=== PATIENT | female | born 1990 | race American Indian/Alaskan Native ===

== ENCOUNTER 2017-06-27 05:21 | Emergency (ER) | payer MEDICAID, OTHER ==
[2017-06-27 06:01] LABS: Basophils % (Auto) 0.1 % (0.0-1.8); Eosinophils % (Auto) 1.1 % (0.0-4.3); Hematocrit 41.2 % (30.3-42.9); Hemoglobin 13.9 gm/dl (10.1-14.3); Mean Corpuscular HGB Conc 34 % (30-34); Mean Corpuscular Hemoglobin 27 pg (28-32); Mean Corpuscular Volume 81 fl (79-97); Platelet Count 246 K/mm3 (140-440); Red Blood Count 5.08 M/mm3 (3.65-5.03); Red Cell Distribution Width 15.6 % (13.2-15.2); White Blood Count 10.2 K/mm3 (4.5-11.0)
[2017-06-27 06:17] LABS: Alanine Aminotransferase 15 units/L (7-56); Albumin 4.2 g/dL (3.9-5); Albumin/Globulin Ratio 1.2 %; Alkaline Phosphatase 62 units/L (35-129); Anion Gap 15 mmol/L; Blood Urea Nitrogen 14 mg/dL (7-17); Calcium 8.6 mg/dL (8.4-10.2); Carbon Dioxide 28 mmol/L (22-30); Chloride 98.6 mmol/L (98-107); Glucose 121 mg/dL (65-100); Lipase 25 units/L (13-60); Potassium 3.7 mmol/L (3.6-5.0); Sodium 138 mmol/L (137-145); Total Protein 7.6 g/dL (6.3-8.2)
[2017-06-27] MEDS ORDERED: ZOFRAN ODT PO ONE (10:30)
--- NOTE | 2017-06-27 10:32 | Emergency Department Report ---
Chief Complaint: Abdominal Pain Stated Complaint: N/V/D/ABD PAIN Time Seen by Provider: 06/27/17 10:25 - HPI History of Present Illness: abd pain pain, n/v since 199 - Review of Systems: + abd pain + n/ v - Exam Vital Signs: Vital Signs 06/27/17 05:32 Temperature 97.5 F L Pulse Rate 67 Blood Pressure 113/72 Physical Exam: abd soft, non tender at this time. MSE screening note: Focused history and physical exam performed. Due to findings the following was ordered: [facility] ED Medical Decision Making - Lab Data Result diagrams: 06/27/17 05:42 06/27/17 05:42 ED Disposition for MSE Condition: Stable Instructions: Abdominal Pain (ED) Referrals: PRIMARY CARE, [Primary Care Provider] - 3-5 Days
[2017-06-27] MEDS ORDERED: ZOFRAN IV ONE ×2 (12:39→15:13)
[2017-06-27] MEDS ORDERED: MORPHINE IV ONE ×2 (12:39→14:41)
[2017-06-27] MEDS ORDERED: NACL 0.9% 1000 ML 1,000 ML IV ONE (12:39)
[2017-06-27] MEDS ORDERED: PEPCID IV ONE (12:41)
--- NOTE | 2017-06-27 12:44 | Emergency Department Report ---
ED Abdominal Pain HPI - General Chief Complaint: Abdominal Pain Stated Complaint: N/V/D/ABD PAIN Time Seen by Provider: 06/27/17 10:25 Source: patient Mode of arrival: Ambulatory Limitations: No Limitations - History of Present Illness Initial Comments: 26-year-old female here with abdominal pain. Patient states she started feeling some chills and nausea last night. Around 2 AM she started vomiting. She's had some nausea vomiting since that time. The vomiting is nonbilious. She is complaining of abdominal cramping. Just complains of chills but no other symptoms. MD Complaint: abdominal pain Location: epigastric Radiation: none Migration to: no migration Severity: mild Severity scale (0 -10): 6 Quality: cramping, stabbing Consistency: constant - Related Data Previous Rx's Medication Instructions Recorded Last Taken Type Cephalexin [Keflex] 500 mg PO TID #21 capsule 04/02/14 Unknown Rx Azithromycin [Zithromax TAB] 250 mg PO QDAY #5 tablet 10/13/16 Unknown Rx traMADol [Ultram 50 MG tab] 50 mg PO Q6HR PRN #20 tablet 10/13/16 Unknown Rx Ibuprofen [Motrin 600 MG tab] 600 mg PO Q8H PRN #30 tablet 06/27/17 Unknown Rx Ondansetron [Zofran Odt] 4 mg PO Q4HR #10 tab.rapdis 06/27/17 Unknown Rx Allergies Allergy/AdvReac Type Severity Reaction Status Date / Time No Known Allergies Allergy Unverified 04/02/14 08:25 ED Review of Systems ROS: Stated complaint: N/V/D/ABD PAIN Other details as noted in HPI Comment: All other systems reviewed and negative Constitutional: denies: chills, fever Eyes: denies: eye pain, eye discharge, vision change ENT: denies: ear pain, throat pain Respiratory: denies: cough, shortness of breath, wheezing Cardiovascular: denies: chest pain, palpitations Endocrine: no symptoms reported Gastrointestinal: abdominal pain, nausea, vomiting. denies: diarrhea Genitourinary: denies: urgency, dysuria, discharge Musculoskeletal: denies: back pain, joint swelling, arthralgia Skin: denies: rash, lesions Neurological: denies: headache, weakness, paresthesias Psychiatric: denies: anxiety, depression Hematological/Lymphatic: denies: easy bleeding, easy bruising ED Past Medical Hx - Past Medical History Previous Medical History?: No - Surgical History Past Surgical History?: No - Family History Family history: no significant - Social History Smoking Status: Never Smoker Substance Use Type: None - Medications Home Medications: Home Medications Medication Instructions Recorded Confirmed Last Taken Type Cephalexin [Keflex] 500 mg PO TID #21 capsule 04/02/14 Unknown Rx Azithromycin [Zithromax TAB] 250 mg PO QDAY #5 tablet 10/13/16 Unknown Rx traMADol [Ultram 50 MG tab] 50 mg PO Q6HR PRN #20 tablet 10/13/16 Unknown Rx Ibuprofen [Motrin 600 MG tab] 600 mg PO Q8H PRN #30 tablet 06/27/17 Unknown Rx Ondansetron [Zofran Odt] 4 mg PO Q4HR #10 tab.rapdis 06/27/17 Unknown Rx ED Physical Exam - General Limitations: No Limitations General appearance: alert, in no apparent distress, obese, other (appears uncomfortable) - Head Head exam: Present: atraumatic, normocephalic - Eye Eye exam: Present: normal appearance. Absent: scleral icterus, conjunctival injection - ENT ENT exam: Present: mucous membranes moist - Neck Neck exam: Present: normal inspection - Respiratory Respiratory exam: Present: normal lung sounds bilaterally. Absent: respiratory distress - Cardiovascular Cardiovascular Exam: Present: regular rate, normal rhythm. Absent: systolic murmur, diastolic murmur, rubs, gallop - GI/Abdominal GI/Abdominal exam: Present: soft, hyperactive bowel sounds. Absent: distended, tenderness, guarding, rebound - Extremities Exam Extremities exam: Present: normal inspection - Back Exam Back exam: Present: normal inspection - Neurological Exam Neurological exam: Present: alert, oriented X3 - Psychiatric Psychiatric exam: Present: normal affect, normal mood - Skin Skin exam: Present: warm, dry, intact, normal color. Absent: rash ED Course Vital Signs 06/27/17 06/27/17 06/27/17 05:32 10:38 11:50 Temperature 97.5 F L 97.6 F Pulse Rate 67 64 62 Respiratory 18 16 Rate Blood Pressure 113/72 Blood Pressure 133/95 133/83 [Left] O2 Sat by Pulse 100 100 Oximetry 06/27/17 14:03 Temperature 98.1 F Pulse Rate 61 Respiratory 16 Rate Blood Pressure Blood Pressure 129/87 [Left] O2 Sat by Pulse 100 Oximetry ED Medical Decision Making - Lab Data Result diagrams: 06/27/17 05:42 06/27/17 05:42 Laboratory Results - last 24 hr 06/27/17 06/27/17 05:42 05:42 WBC 10.2 RBC 5.08 H Hgb 13.9 Hct 41.2 MCV 81 MCH 27 L MCHC 34 RDW 15.6 H Plt Count 246 Lymph % (Auto) 13.2 L Yancey % (Auto) 8.1 H Eos % (Auto) 1.1 Baso % (Auto) 0.1 Lymph # 1.4 Yancey # 0.8 Eos # 0.1 Baso # 0.0 Seg Neutrophils % 77.5 H Seg Neutrophils # 7.9 H Sodium 138 Potassium 3.7 Chloride 98.6 Carbon Dioxide 28 Anion Gap 15 BUN 14 Creatinine 0.7 Estimated GFR > 60 BUN/Creatinine Ratio 20.00 Glucose 121 H Calcium 8.6 Total Bilirubin 0.30 AST 19 ALT 15 Alkaline Phosphatase 62 Total Protein 7.6 Albumin 4.2 Albumin/Globulin Ratio 1.2 Lipase 25 - Medical Decision Making Patient is a 26 old female with no medical history here with complaints of abdominal pain nausea vomiting. She is tender epigastrium but otherwise appears well. She's had some vomiting here in the emergency department. Her labs are unremarkable. Plan to check UA treated with IV fluids and Zofran Pepcid and plan to reassess. CT negative. Patient feeling somewhat improved after several doses of morphine and Zofran. Plan to discharge him with oral pain medication and Zofran. Portions of this chart were dictated with dictation software. There may be dictation errors contained within this note. Critical care attestation.: If time is entered above; I have spent that time in minutes in the direct care of this critically ill patient, excluding procedure time. ED Disposition Clinical Impression: Abdominal pain, Nausea and vomiting Disposition: DC-01 TO HOME OR SELFCARE Is pt being admited?: No Condition: Stable Instructions: Abdominal Pain (ED) Prescriptions: Ibuprofen [Motrin 600 MG tab] 600 mg PO Q8H PRN #30 tablet PRN Reason: Pain Ondansetron [Zofran Odt] 4 mg PO Q4HR #10 tab.rapdis Referrals: PRIMARY CARE, [Primary Care Provider] - 3-5 Days
[2017-06-27 14:11] LABS: Urine Drugs of Abuse Note Disclamer
[2017-06-27 14:31] LABS: Bilirubin,Urine NEG (Negative); Blood,Urine NEG (Negative); Ketones,Urine NEG (Negative); Leukocyte Esterase,Urine NEG (Negative); Mucus,Urine FEW /HPF; Nitrite,Urine NEG (Negative); Urobilinogen,Urine < 2.0 mg/dL (<2.0); WBC,Urine < 1.0 /HPF (0.0-6.0)
[2017-06-27] MEDS ORDERED: ZOFRAN ONE (15:02)
[2017-06-27] MEDS ORDERED: NACL ONE (16:27)
--- NOTE | 2017-06-27 16:37 | Cat Scan Report ---
CT ABDOMEN AND PELVIS WITH CONTRAST INDICATION: Abdominal pain, nausea, vomiting. COMPARISON: None similar. FINDINGS: Abdomen and pelvis CT performed following intravenous administration of 100 cc of Omnipaque 300. LUNG BASES: Normal heart size. No effusions. Slight nonspecific distal esophageal prominence. ABDOMEN: Liver, spleen, gallbladder, pancreas, adrenals, nonaneurysmal abdominal aorta, IVC and kidneys within normal limits bilaterally without hydronephrosis, ascites or size significant adenopathy. Right hepatic lobe approximately 19 cm in midclavicular length. Left hepatic lobe tip also wraps around the spleen. Nonopacified GI tract evaluation limited, though grossly nonobstructive. Normal appendix. PELVIS: Uterus may be retroverted. Otherwise physiologic appearance of the uterus, adnexa/ovaries, urinary bladder and the rectosigmoid. Few small pelvic phleboliths. No free fluid or significant adenopathy. Slight lower thoracic degenerative spurring. CONCLUSION: No acute CT abnormality with few incidental findings, including slightly prominent liver, as described. Please correlate. Thank you for the opportunity to participate in this patient's care.
[2017-06-27 17:38] VITALS: BP 104/68
== END 2017-06-27 17:39 | disposition home or self-care (01) ==
LOC: ED 05:21
DX: R10.13 Epigastric pain (principal); R11.2 Nausea with vomiting, unspecified
CPT/HCPCS: 36415; 74177; 80053; 80307; 81001; 81025; 83690; 85025; 96361; 96374; 96375; 96376; 99284; J2270; J2405; J7030; Q9967; Q0162

== ENCOUNTER 2017-10-11 15:16 | Emergency (ER) | payer MEDICAID ==
[2017-10-11] MEDS ORDERED: MOTRIN PO ONE (15:46)
--- NOTE | 2017-10-11 15:46 | Emergency Department Report ---
Chief Complaint: Dyspnea/Respdistress Stated Complaint: CHEST PAIN/SHORT OF BREATH - HPI History of Present Illness: This is a 27-year-old female nontoxic, well nourished in appearance, no acute signs of distress presents to the ED with c/o of chest pain, shortness of breath , productive cough, diarrhea, fever, weakness times x3 days. Patient denies any recent rales, rhonchi or recent hospital stay. Denies any nausea, vomiting , chills, stiff neck, headache. Denies any calf pain or tenderness. Patient describes productive cough as brownish/yellowish sputum. - Exam Vital Signs: Vital Signs 10/11/17 15:22 Temperature 100.3 F H Pulse Rate 116 H Respiratory 20 Rate Blood Pressure 128/91 O2 Sat by Pulse 95 Oximetry Physical Exam: GENERAL: The patient is a well-developed, well-nourished female in no apparent distress. Patient is alert and acting appropriately for age. Alert and oriented 3, no apparent distress, normal gait, atraumatic. LUNGS: Clear to auscultation. Non labor breathing. No intercostal retractions. Symmetrical with respiration, no wheezing, no rales, or crackles. ABDOMEN: Soft, nontender, and nondistended. Positive bowel sounds. No hepatosplenomegaly was noted. No guarding or rebound tenderness, negative epigastric bruit. Negative psoas sign, negative conley sign, negative McBurneys sign MSE screening note: Focused history and physical exam performed. Due to findings the following was ordered: 1- This initial assessment/diagnostic orders/clinical plan/ treatment(s) is/are subject to change based on pt's health status, clinical progression and re- assessment by fellow clinical providers in the ED. Further treatment and workup at subsequent clinical provers discretion. Patient/guardians urged not to elope from ED as their condition may be serious if not clinically assessed and managed. 2-EKG, chest x-ray 3-CBC, CMP, troponin, cardiac CK, UA, serum test ED Disposition for MSE Condition: Stable
[2017-10-11 16:20] LABS: Eosinophils % (Auto) 0.1 % (0.0-4.3); Mean Corpuscular HGB Conc 34 % (30-34); Mean Corpuscular Hemoglobin 27 pg (28-32); Mean Corpuscular Volume 79 fl (79-97); Platelet Count 218 K/mm3 (140-440); Red Blood Count 5.22 M/mm3 (3.65-5.03); Red Cell Distribution Width 14.2 % (13.2-15.2); White Blood Count 5.1 K/mm3 (4.5-11.0)
[2017-10-11 16:51] LABS: Alanine Aminotransferase 13 units/L (7-56); Albumin 4.2 g/dL (3.9-5); Albumin/Globulin Ratio 1.4 %; Alkaline Phosphatase 57 units/L (35-129); Anion Gap 21 mmol/L; BUN/Creatinine Ratio 11; Blood Urea Nitrogen 9 mg/dL (7-17); Calcium 8.4 mg/dL (8.4-10.2); Carbon Dioxide 20 mmol/L (22-30); Chloride 97.3 mmol/L (98-107); Creatine Kinase 115 units/L (30-135); Glucose 105 mg/dL (65-100); Potassium 3.7 mmol/L (3.6-5.0); Sodium 135 mmol/L (137-145); Total Protein 7.3 g/dL (6.3-8.2)
[2017-10-11 16:56] LABS: Creatine Kinase MB < 1.0 ng/mL (0.0-4.0)
[2017-10-12] MEDS ORDERED: ATROVENT IH ONE (03:25)
[2017-10-12] MEDS ORDERED: TYLENOL PO ONE (03:26)
[2017-10-12] MEDS ORDERED: PROVENTIL IH ONE (03:26)
[2017-10-12] MEDS ORDERED: MAGNESIUM SULFATE 2GM/50ML 2 GM/50 ML BAG IV ONE (03:26)
[2017-10-12] MEDS ORDERED: NACL 0.9% 1000 ML 1,000 ML IV ONE (03:26)
[2017-10-12] MEDS ORDERED: TORADOL IV ONE (03:27)
--- NOTE | 2017-10-12 03:27 | Emergency Department Report ---
ED General Adult HPI - General Chief complaint: Dyspnea/Respdistress Stated complaint: CHEST PAIN/SHORT OF BREATH Time Seen by Provider: 10/12/17 02:29 Source: patient, RN notes reviewed Mode of arrival: Ambulatory Limitations: No Limitations - History of Present Illness Initial comments: This is a 27-year-old female who was previously unknown to me. Patient presents to the ER with chest wall pain since Tuesday. Patient also complains of cough, shortness of breath, mucous production. There is no leg pain. There is no leg swelling. Patient does not take oral contraceptives. Patient has no recent surgeries. Patient reports that she recently has not . Patient further reports that she's been coughing and wheezing, bringing up mucus. She also reports resolved facial pain. -: Gradual Location: face, chest Radiation: non-radiation Severity scale (0 -10): 7 Quality: aching Consistency: constant Improves with: rest Worsens with: movement Associated Symptoms: chest pain, cough, fever/chills, shortness of breath - Related Data Previous Rx's Medication Instructions Recorded Last Taken Type Cephalexin [Keflex] 500 mg PO TID #21 capsule 04/02/14 Unknown Rx Azithromycin [Zithromax TAB] 250 mg PO QDAY #5 tablet 10/13/16 Unknown Rx traMADol [Ultram 50 MG tab] 50 mg PO Q6HR PRN #20 tablet 10/13/16 Unknown Rx Ibuprofen [Motrin 600 MG tab] 600 mg PO Q8H PRN #30 tablet 06/27/17 Unknown Rx Ondansetron [Zofran Odt] 4 mg PO Q4HR #10 tab.rapdis 06/27/17 Unknown Rx Albuterol Sulfate [Proair 90 mcg IH Q4HR PRN #2 aer.pow.ba 10/12/17 Unknown Rx Respiclick] Benzonatate [Tessalon Perles] 100 mg PO Q8HR PRN #30 capsule 10/12/17 Unknown Rx Fluticasone [Flonase] 1 spray NS QDAY #1 bottle 10/12/17 Unknown Rx Ibuprofen [Motrin] 600 mg PO Q8H PRN #30 tablet 10/12/17 Unknown Rx Ipratropium [place] [Atrovent Hfa] 12.9 gm IH Q4HR #2 hfa.aer.ad 10/12/17 Unknown Rx predniSONE [Deltasone] 40 mg PO QDAY #8 tab 10/12/17 Unknown Rx Allergies Allergy/AdvReac Type Severity Reaction Status Date / Time No Known Allergies Allergy Unverified 04/02/14 08:25 ED Review of Systems ROS: Stated complaint: CHEST PAIN/SHORT OF BREATH Other details as noted in HPI Constitutional: fever, weakness ENT: congestion Respiratory: cough, wheezing Cardiovascular: chest pain Gastrointestinal: denies: vomiting Genitourinary: as per HPI Musculoskeletal: arthralgia, myalgia Neurological: weakness ED Past Medical Hx - Past Medical History Previous Medical History?: No - Surgical History Past Surgical History?: No - Social History Smoking Status: Current Every Day Smoker Substance Use Type: None - Medications Home Medications: Home Medications Medication Instructions Recorded Confirmed Last Taken Type Cephalexin [Keflex] 500 mg PO TID #21 capsule 04/02/14 Unknown Rx Azithromycin [Zithromax TAB] 250 mg PO QDAY #5 tablet 10/13/16 Unknown Rx traMADol [Ultram 50 MG tab] 50 mg PO Q6HR PRN #20 tablet 10/13/16 Unknown Rx Ibuprofen [Motrin 600 MG tab] 600 mg PO Q8H PRN #30 tablet 06/27/17 Unknown Rx Ondansetron [Zofran Odt] 4 mg PO Q4HR #10 tab.rapdis 06/27/17 Unknown Rx Albuterol Sulfate [Proair 90 mcg IH Q4HR PRN #2 aer.pow.ba 10/12/17 Unknown Rx Respiclick] Benzonatate [Tessalon Perles] 100 mg PO Q8HR PRN #30 capsule 10/12/17 Unknown Rx Fluticasone [Flonase] 1 spray NS QDAY #1 bottle 10/12/17 Unknown Rx Ibuprofen [Motrin] 600 mg PO Q8H PRN #30 tablet 10/12/17 Unknown Rx Ipratropium [place] [Atrovent Hfa] 12.9 gm IH Q4HR #2 hfa.aer.ad 10/12/17 Unknown Rx predniSONE [Deltasone] 40 mg PO QDAY #8 tab 10/12/17 Unknown Rx ED Physical Exam - General Limitations: No Limitations General appearance: alert, in no apparent distress - Head Head exam: Present: atraumatic, normocephalic - Eye Eye exam: Present: normal appearance, EOMI. Absent: nystagmus - ENT ENT exam: Present: normal exam, normal orophraynx, mucous membranes moist, TM's normal bilaterally, normal external ear exam - Neck Neck exam: Present: normal inspection, full ROM - Respiratory Respiratory exam: Present: wheezes, chest wall tenderness. Absent: respiratory distress - Cardiovascular Cardiovascular Exam: Present: normal rhythm, tachycardia, normal heart sounds. Absent: systolic murmur, diastolic murmur, rubs, gallop - GI/Abdominal GI/Abdominal exam: Present: soft, normal bowel sounds. Absent: distended, tenderness, guarding, rebound, rigid, pulsatile mass - Extremities Exam Extremities exam: Present: normal inspection, full ROM, normal capillary refill. Absent: pedal edema, joint swelling, calf tenderness - Back Exam Back exam: Present: normal inspection, full ROM. Absent: CVA tenderness (R), paraspinal tenderness, vertebral tenderness - Neurological Exam Neurological exam: Present: alert, oriented X3, normal gait, other (Extraocular movements intact. Tongue midline. No facial droop. Facial sensation intact to light touch in the V1, V2, V3 distribution bilaterally. 5 and 5 strength in 4 extremities.. Sensation is intact to light touch in 4 extremities.). Absent : motor sensory deficit - Psychiatric Psychiatric exam: Present: normal affect, normal mood - Skin Skin exam: Present: warm, dry, intact, normal color. Absent: rash ED Course Vital Signs 10/11/17 10/12/17 10/12/17 15:22 02:00 02:05 Temperature 100.3 F H 99.5 F Pulse Rate 116 H 96 H 99 H Respiratory 20 22 24 Rate Blood Pressure 128/91 115/84 Blood Pressure 124/78 [Left] O2 Sat by Pulse 95 96 95 Oximetry 10/12/17 10/12/17 03:00 04:00 Temperature Pulse Rate 96 H 100 H Respiratory 24 18 Rate Blood Pressure 120/79 123/78 Blood Pressure [Left] O2 Sat by Pulse 94 Oximetry - Reevaluation(s) Reevaluation #1: 10/12/17 04:44 There are no DVT or pulmonary embolus risk factors. The patient is low risk by well's criteria. Clinical history suggestive of bronchitis with possible superimposed costochondritis. Patient able to walk around the ER multiple times without desaturating. ED Medical Decision Making - Lab Data Result diagrams: 10/11/17 16:05 10/11/17 16:05 Vital Signs 10/11/17 10/12/17 10/12/17 15:22 02:00 02:05 Temperature 100.3 F H 99.5 F Pulse Rate 116 H 96 H 99 H Respiratory 20 22 24 Rate Blood Pressure 128/91 115/84 Blood Pressure 124/78 [Left] O2 Sat by Pulse 95 96 95 Oximetry 10/12/17 10/12/17 03:00 04:00 Temperature Pulse Rate 96 H 100 H Respiratory 24 18 Rate Blood Pressure 120/79 123/78 Blood Pressure [Left] O2 Sat by Pulse 94 Oximetry Lab Results 10/11/17 10/11/17 10/11/17 Range/Units 16:05 16:05 16:05 WBC 5.1 (4.5-11.0) K/mm3 RBC 5.22 H (3.65-5.03) M/mm3 Hgb 14.0 (10.1-14.3) gm/dl Hct 41.0 (30.3-42.9) % MCV 79 (79-97) fl MCH 27 L (28-32) pg MCHC 34 (30-34) % RDW 14.2 (13.2-15.2) % Plt Count 218 (140-440) K/mm3 Lymph % (Auto) 19.1 (13.4-35.0) % Walton % (Auto) 13.7 H (0.0-7.3) % Eos % (Auto) 0.1 (0.0-4.3) % Baso % (Auto) 1.0 (0.0-1.8) % Lymph # 1.0 L (1.2-5.4) K/mm3 Walton # 0.7 (0.0-0.8) K/mm3 Eos # 0.0 (0.0-0.4) K/mm3 Baso # 0.1 (0.0-0.1) K/mm3 Seg Neutrophils % 66.1 (40.0-70.0) % Seg Neutrophils # 3.4 (1.8-7.7) K/mm3 Sodium 135 L (137-145) mmol/L Potassium 3.7 (3.6-5.0) mmol/L Chloride 97.3 L (98-107) mmol/L Carbon Dioxide 20 L (22-30) mmol/L Anion Gap 21 mmol/L BUN 9 (7-17) mg/dL Creatinine 0.8 (0.7-1.2) mg/dL Estimated GFR > 60 ml/min BUN/Creatinine Ratio 11 % Glucose 105 H (65-100) mg/dL Calcium 8.4 (8.4-10.2) mg/dL Total Bilirubin 0.30 (0.1-1.2) mg/dL AST 19 (5-40) units/L ALT 13 (7-56) units/L Alkaline Phosphatase 57 (35-129) units/L Total Creatine Kinase 115 (30-135) units/L CK-MB (CK-2) < 1.0 (0.0-4.0) ng/mL CK-MB (CK-2) Rel Index 0.8 (0-4) Troponin T < 0.010 (0.00-0.029) ng/mL Total Protein 7.3 (6.3-8.2) g/dL Albumin 4.2 (3.9-5) g/dL Albumin/Globulin Ratio 1.4 % HCG, Qual Negative (Negative) 10/12/17 Range/Units 03:36 WBC (4.5-11.0) K/mm3 RBC (3.65-5.03) M/mm3 Hgb (10.1-14.3) gm/dl Hct (30.3-42.9) % MCV (79-97) fl MCH (28-32) pg MCHC (30-34) % RDW (13.2-15.2) % Plt Count (140-440) K/mm3 Lymph % (Auto) (13.4-35.0) % Walton % (Auto) (0.0-7.3) % Eos % (Auto) (0.0-4.3) % Baso % (Auto) (0.0-1.8) % Lymph # (1.2-5.4) K/mm3 Walton # (0.0-0.8) K/mm3 Eos # (0.0-0.4) K/mm3 Baso # (0.0-0.1) K/mm3 Seg Neutrophils % (40.0-70.0) % Seg Neutrophils # (1.8-7.7) K/mm3 Sodium (137-145) mmol/L Potassium (3.6-5.0) mmol/L Chloride (98-107) mmol/L Carbon Dioxide (22-30) mmol/L Anion Gap mmol/L BUN (7-17) mg/dL Creatinine (0.7-1.2) mg/dL Estimated GFR ml/min BUN/Creatinine Ratio % Glucose (65-100) mg/dL Calcium (8.4-10.2) mg/dL Total Bilirubin (0.1-1.2) mg/dL AST (5-40) units/L ALT (7-56) units/L Alkaline Phosphatase (35-129) units/L Total Creatine Kinase (30-135) units/L CK-MB (CK-2) (0.0-4.0) ng/mL CK-MB (CK-2) Rel Index (0-4) Troponin T < 0.010 (0.00-0.029) ng/mL Total Protein (6.3-8.2) g/dL Albumin (3.9-5) g/dL Albumin/Globulin Ratio % HCG, Qual (Negative) - EKG Data -: EKG Interpreted by Me - EKG Data 10/12/17 04:35 EKG #1 demonstrates sinus, 97 bpm, normal intervals, normal axis, not morphologically consistent with ST elevation myocardial infarction. Repeat EKG is unchanged. - Radiology Data Radiology results: image reviewed interpreted by me: X-ray of the chest is negative for acute disease - Medical Decision Making Differential diagnosis, including but not limited to: Bronchitis, pneumonia, pneumonitis, pericarditis, myocarditis, costochondritis Assessment and plan: 27-year-old female with atypical chest wall pain that is reproducible for a few days. Troponin negative 2, low risk by heart score, low risk by ENRIQUE score, low risk by well's criteria, medicated aggressively with pain medication, fluids, albuterol, Atrovent, steroids and magnesium. On multiple repeat examinations patient noted to be sleeping in stretcher and in no distress. She has some persistent wheezing after her aforementioned therapy but I would expect that. The patient is able to walk without desaturation, patient at low risk for major adverse cardiac event given clinical history and physical exam findings, given negative troponin, myocarditis/pericarditis very unlikely. Patient is somewhat tachycardic at this time, but did receive albuterol and I would expect that. Critical care attestation.: If time is entered above; I have spent that time in minutes in the direct care of this critically ill patient, excluding procedure time. ED Disposition Clinical Impression: Bronchitis, Chest wall pain Disposition: DC-01 TO HOME OR SELFCARE Is pt being admited?: No Does the pt Need Aspirin: No Condition: Stable Instructions: Costochondritis (ED), Acute Bronchitis (ED) Additional Instructions: As we discussed, symptoms likely coming from bronchitis, and irritation in the muscles of the chest wall cavity. Symptoms of bronchitis may last anywhere from 2 weeks to 6 weeks. Rest and avoid heavy lifting, and avoid strenuous physical activity. Take the pain medication, breathing medication as directed. Follow up with her primary care doctor within the next 7-10 days. Return to the ER right away with new pain, worsened pain, migration of pain, fevers, chills, lethargy, irritability, projectile vomiting, change in mental status, confusion, inability to tolerate liquid feeds Prescriptions: Albuterol Sulfate [Proair Respiclick] 90 mcg IH Q4HR PRN #2 aer.pow.ba PRN Reason: Wheezing Benzonatate [Tessalon Perles] 100 mg PO Q8HR PRN #30 capsule PRN Reason: Cough Fluticasone [Flonase] 1 spray NS QDAY #1 bottle Ibuprofen [Motrin] 600 mg PO Q8H PRN #30 tablet PRN Reason: Pain Ipratropium [place] [Atrovent Hfa] 12.9 gm IH Q4HR #2 hfa.aer.ad predniSONE [Deltasone] 40 mg PO QDAY #8 tab Referrals: OMID KARIMI MD [Primary Care Provider] - 3-5 Days [facility] [Provider Group] - 3-5 Days
[2017-10-12 04:22] VITALS: BP 123/78
--- NOTE | 2017-10-12 10:21 | XRay Report ---
CHEST 2 VIEWS INDICATION: Chest pain. COMPARISON: 10/13/2016 FINDINGS: PA and lateral chest radiographs again demonstrate normal cardiomediastinal silhouette and slightly prominent markings, greatest at the right lung base with mild right middle lobe scarring medially and prominent right cardiophrenic angle fat pad noted on 06/27/2017 CT. Clear remainder lungs without pleural effusions or CHF. Slight mid to lower thoracic spine degenerative spurring. CONCLUSION: No significant acute chest process or interval change, as above. Thank you for the opportunity to participate in this patient's care.
== END 2017-10-12 05:00 | disposition home or self-care (01) ==
LOC: ED 15:16
DX: J40 Bronchitis, not specified as acute or chronic (principal); R07.89 Other chest pain; F17.200 Nicotine dependence, unspecified, uncomplicated
CPT/HCPCS: 36415; 71020; 80053; 82550; 82553; 84484; 84703; 85025; 93005; 93010; 94640; 96361; 96365; 96375; 99284; J1885; J2930; J3475; J7030

== ENCOUNTER 2018-01-03 18:18 | Outpatient (CLI) | payer MEDICAID ==
--- NOTE | 2018-01-03 19:55 | XRay Report ---
FINAL REPORT PROCEDURE: Left foot. TECHNIQUE: Three views. HISTORY: Knee and foot pain . COMPARISON: No prior studies are available for comparison. FINDINGS: The bones appear intact without fracture or dislocation. The joint spaces appear normal. The soft tissues are unremarkable. IMPRESSION: Normal study.
--- NOTE | 2018-01-03 21:29 | XRay Report ---
FINAL REPORT PROCEDURE: Bilateral knees. TECHNIQUE: Three views of each knee. HISTORY: Knee and foot pain. COMPARISON: No prior studies are available for comparison. FINDINGS: Right knee: The bones appear intact without fracture or dislocation. The joint spaces appear normal. The soft tissues are unremarkable. There is no evidence of a knee effusion. Left knee: The bones appear intact without fracture or dislocation. The joint spaces appear normal. The soft tissues are unremarkable. There is no evidence of a knee effusion. IMPRESSION: Normal right and left knees.
== END 2018-01-03 18:19 | disposition home or self-care (01) ==
LOC: XRAY 18:18
PROVIDERS: ATTEND Internal Medicine
DX: M25.561 Pain in right knee (principal); M25.562 Pain in left knee; M79.672 Pain in left foot

== ENCOUNTER 2022-03-23 22:13 | Emergency (ER) | payer MEDICAID, OTHER ==
[2022-03-23 22:39] VITALS: BP 90/69
--- NOTE | 2022-03-24 01:28 | Emergency Department Report ---
ED Eye Problem HPI - General Chief complaint: Eye Problems Stated complaint: EYE IRRITATION Source: patient Mode of arrival: Ambulatory Limitations: No Limitations - History of Present Illness Initial comments: Patient is a 31-year-old -[place] female with a history of morbid obesity presents to the ED with complaint of acute onset persistent bilateral eye pain and redness for the last 6 hours. Patient states that she has not been able to sleep because of persistent pain with burning sensation with eyelid swelling for the last 2 hours. Patient states that no one else at home or at work has had the symptoms. Patient denies vision loss, fever, chills, nasal and sinus congestion, headache, neck pain, cough, sore throat, nausea and vomiting or diarrhea. MD chief complaint: eye pain (Bilateral eye pain and redness), eye redness -: Sudden, hour(s) (6) Onset Description: sudden Location: both eyes Place: home If Injury: none Eye Symptoms: burning, redness, pain, itching, discharge Severity: moderate Severity scale (0 -10): 6 If Pain, Quality: burning, aching Consistency: constant Associated Symptoms: none. denies: headache, neck pain, nausea/vomiting, cough, rhinorrhea, fever, other Treatments Prior to Arrival: none - Related Data Patient Tetanus UTD: Yes Previous Rx's Medication Instructions Recorded Last Taken Type cephALEXin [Keflex] 500 mg PO TID #21 capsule 04/02/14 Unknown Rx Azithromycin [Zithromax TAB] 250 mg PO QDAY #5 tablet 10/13/16 Unknown Rx traMADoL [Ultram 50 MG tab] 50 mg PO Q6HR PRN #20 tablet 10/13/16 Unknown Rx Ondansetron [Zofran Odt] 4 mg PO Q4HR #10 tab.rapdis 06/27/17 Unknown Rx Albuterol Sulfate [Proair 90 mcg IH Q4HR PRN #2 aer.pow.ba 10/12/17 Unknown Rx Respiclick] Benzonatate [Tessalon Perles] 100 mg PO Q8HR PRN #30 capsule 10/12/17 Unknown Rx Fluticasone [Flonase] 1 spray NS QDAY #1 bottle 10/12/17 Unknown Rx Ibuprofen [Motrin] 600 mg PO Q8H PRN #30 tablet 10/12/17 Unknown Rx Ipratropium [place] [Atrovent Hfa] 12.9 gm IH Q4HR #2 hfa.aer.ad 10/12/17 Unknown Rx predniSONE [Deltasone] 40 mg PO QDAY #8 tab 10/12/17 Unknown Rx Ibuprofen [Motrin 600 MG tab] 600 mg PO Q8H PRN #30 tablet 03/24/22 Unknown Rx Tobramycin 0.3% [Tobrex] 1 drop OP Q8HR #5 ml 03/24/22 Unknown Rx Allergies Allergy/AdvReac Type Severity Reaction Status Date / Time No Known Allergies Allergy Unverified 04/02/14 08:25 ED Review of Systems ROS: Stated complaint: EYE IRRITATION Other details as noted in HPI Constitutional: denies: chills, fever Eyes: eye pain (Bilateral eye pain), eye discharge (Bilateral). denies: vision change ENT: denies: ear pain, throat pain Respiratory: denies: cough, shortness of breath, wheezing Cardiovascular: denies: chest pain, palpitations Endocrine: no symptoms reported Gastrointestinal: denies: abdominal pain, nausea, diarrhea Genitourinary: denies: urgency, dysuria, discharge Musculoskeletal: denies: back pain, joint swelling, arthralgia Skin: denies: rash, lesions Neurological: denies: headache, weakness, paresthesias Psychiatric: denies: anxiety, depression Hematological/Lymphatic: denies: easy bleeding, easy bruising ED Past Medical Hx - Social History Smoking Status: Current Every Day Smoker Substance Use Type: None - Medications Home Medications: Home Medications Medication Instructions Recorded Confirmed Last Taken Type cephALEXin [Keflex] 500 mg PO TID #21 capsule 04/02/14 Unknown Rx Azithromycin [Zithromax TAB] 250 mg PO QDAY #5 tablet 10/13/16 Unknown Rx traMADoL [Ultram 50 MG tab] 50 mg PO Q6HR PRN #20 tablet 10/13/16 Unknown Rx Ondansetron [Zofran Odt] 4 mg PO Q4HR #10 tab.rapdis 06/27/17 Unknown Rx Albuterol Sulfate [Proair 90 mcg IH Q4HR PRN #2 aer.pow.ba 10/12/17 Unknown Rx Respiclick] Benzonatate [Tessalon Perles] 100 mg PO Q8HR PRN #30 capsule 10/12/17 Unknown Rx Fluticasone [Flonase] 1 spray NS QDAY #1 bottle 10/12/17 Unknown Rx Ibuprofen [Motrin] 600 mg PO Q8H PRN #30 tablet 10/12/17 Unknown Rx Ipratropium [place] [Atrovent Hfa] 12.9 gm IH Q4HR #2 hfa.aer.ad 10/12/17 Unknown Rx predniSONE [Deltasone] 40 mg PO QDAY #8 tab 10/12/17 Unknown Rx Ibuprofen [Motrin 600 MG tab] 600 mg PO Q8H PRN #30 tablet 03/24/22 Unknown Rx Tobramycin 0.3% [Tobrex] 1 drop OP Q8HR #5 ml 03/24/22 Unknown Rx ED Physical Exam - General Limitations: No Limitations General appearance: alert, in no apparent distress - Head Head exam: Present: atraumatic, normocephalic, normal inspection - Eye Eye exam: Present: normal appearance, PERRL, EOMI, other (Mild erythematous bilateral conjunctiva with mild discharge) Pupils: Present: normal accommodation - ENT ENT exam: Present: normal exam, normal orophraynx, mucous membranes moist, TM's normal bilaterally, normal external ear exam - Neck Neck exam: Present: normal inspection, full ROM. Absent: tenderness - Respiratory Respiratory exam: Present: normal lung sounds bilaterally. Absent: respiratory distress, wheezes, rales, rhonchi, chest wall tenderness, accessory muscle use, decreased breath sounds, prolonged expiratory - Cardiovascular Cardiovascular Exam: Present: regular rate, normal rhythm, normal heart sounds. Absent: systolic murmur, diastolic murmur, rubs, gallop - GI/Abdominal GI/Abdominal exam: Present: soft, normal bowel sounds. Absent: tenderness, guarding, rebound, hyperactive bowel sounds, hypoactive bowel sounds, organomegaly, mass - Extremities Exam Extremities exam: Present: normal inspection, full ROM, normal capillary refill. Absent: tenderness - Back Exam Back exam: Present: normal inspection, full ROM. Absent: tenderness, CVA tenderness (R), CVA tenderness (L), muscle spasm, paraspinal tenderness, vertebral tenderness - Neurological Exam Neurological exam: Present: alert, oriented X3, CN II-XII intact, normal gait, reflexes normal - Psychiatric Psychiatric exam: Present: normal affect, normal mood - Skin Skin exam: Present: warm, dry, intact, normal color. Absent: rash ED Course Vital Signs 03/23/22 22:38 Temperature 98.1 F Pulse Rate 83 Respiratory 16 Rate Blood Pressure 90/69 [Right] O2 Sat by Pulse 97 Oximetry ED Medical Decision Making - Medical Decision Making This is a 31-year-old -[place] female with a history of morbid obesity presents to the ED with complaint of acute onset persistent bilateral eye pain and redness for the last 6 hours. Patient states that she has not been able to sleep because of persistent pain with burning sensation with eyelid swelling for the last 2 hours. Patient states that no one else at home or at work has had the symptoms. In the ED, patient is alert and oriented x3 and is not in any distress. Patient was discharged home on medications based on the history and physical exam findings, and was advised to follow-up with her tariff clerk in 5 to 7 days for reevaluation. Patient was advised return to the ED immediately if symptoms get worse. - Differential Diagnosis Bacterial conjunctivitis; viral conjunctivitis; allergic conjunctivitis Critical care attestation.: If time is entered above; I have spent that time in minutes in the direct care of this critically ill patient, excluding procedure time. ED Disposition Clinical Impression: Acute conjunctivitis of both eyes Qualifiers: Acute conjunctivitis type: unspecified Qualified Code(s): H10.33 - Unspecified acute conjunctivitis, bilateral Disposition: 01 HOME / SELF CARE / HOMELESS Is pt being admited?: No Does the pt Need Aspirin: No Condition: Stable Instructions: Bacterial Conjunctivitis, Adult, [id number] Additional Instructions: Apply medication to the affected eyes as advised, drink plenty of fluids, follow-up with your primary care physician in 7 to 10 days for reevaluation. Consider following up with the tariff clerk Dr. Cooper in 3 to 5 days for reevaluation. Return to the ED immediately if symptoms get worse. Prescriptions: Ibuprofen [Motrin 600 MG tab] 600 mg PO Q8H PRN #30 tablet PRN Reason: Pain Tobramycin 0.3% [Tobrex] 1 drop OP Q8HR #5 ml Referrals: EDDIE COOPER MD [Staff Physician] - 7-10 days Forms: Work/School Release Form(ED) Time of Disposition: 01:28 Print Language: SALVADORE[place]
== END 2022-03-24 02:04 | disposition home or self-care (01) ==
LOC: ED 22:13
DX: H10.33 Unspecified acute conjunctivitis, bilateral (principal); F17.200 Nicotine dependence, unspecified, uncomplicated; Z79.899 Other long term (current) drug therapy
CPT/HCPCS: 99282